=== PATIENT | female | born 1980 | race Caucasian/White ===

== ENCOUNTER 2017-01-29 15:51 | Emergency (ER) | payer OTHER ==
[~2017-01-29 15:51] MED LIST: ABILIFY20 MG PO; ACETAMINOPHEN PO; ACULAR10 ML OP; ADVAIR 100-501 EACH IH; AMBILIFY PO; CERTAGEN PO; CETIRIZINE HCL10 MG PO; CIPRO250 M1 PO; CLINORIL; COLACE PO; DAYQUIL; DITROPAN5 MG DOB; DOXEPIN PO; FAMOTIDINE PO; FLEXERIL PO; FLONASE16 GM; GAS RELIEF125 MG; GEODAN; GEODAN PO; GEODON80 MG PO; HYDROCODON-ACE1 EACH PO; HYDROXYZINE HCL50 MG PO; IBUPROFEN PO; IBUPROFEN800 MG PO; KLONOPIN PO; LAMICTAL PO; LAMICTAL100 MG PO; LEVOXYL0.137 MG; LEVOXYL125 MC1 PO; LEVOXYL150 MC1 PO; LEXAPRO PO; LEXAPRO20 MG PO; MAALOX SUSPENS355 ML PO; MACROBID100 MG DOB; MEDROL4 MG/DOSE- PO; MILK OF MAGNESIA PO; MOBIC PO; MOBIC15 MG PO; MOTRIN600 MG PO; MULTI VITAMIN1 EACH PO; NEURONTIN PO; NEURONTIN600 MG; NICOTINE TRANSD14 MG EXT; OMEPRAZOLE20 M1 PO; OTC ALLERGY MED; PATANOL5 ML OU; PAXIL; PAXIL CR25 MG PO; PAXIL PO; PHENERGAN25 MG PO; PRILOSEC; PROSED DS PO; PROTONIX PO; PROZAC PO; PYRIDIUM100 MG PO; SKELAXIN PO; SUDAFED30 M1 PO; SYNTHROID PO; TETRACYCLINE PO; THERAFLU; TOPROL XL; TRAZODONE; TRAZODONE HCL100 MG PO; TYLENOL #3 PO; ULTRAM PO; URISPAS100 M1 PO; VICODIN 5/500 T1 TAB PO; VOLTAREN75 MG PO; WELLBUTRIN; WELLBUTRIN PO; WELLBUTRIN XL PO; XANAX0.5 M1 PO; ZANTAC150 MG PO; ZITHROMAX PO
[2017-01-29 16:21] LABS: INFLUENZA A NEG (NEG); INFLUENZA B NEG (NEG)
[2017-01-29 16:39] LABS: URINE SOURCE CLEAN CATCH
[2017-01-29 16:41] LABS: URINE APPEARANCE CLEAR; URINE BILIRUBIN NEG (NEG); URINE BLOOD TRACE-INTACT (NEG); URINE COLOR YELLOW; URINE GLUCOSE NEG (NORM); URINE KETONE NEG (NEG); URINE LEUKOCYTE ESTERASE NEG (NEG); URINE NITRATE NEG (NEG); URINE PH 5.5 (5-8); URINE PROTEIN NEG (NEG); URINE SPECIFIC GRAVITY <=1.005 (1.003-1.035); URINE UROBILINOGEN 0.2 MG/DL (NORM)
[2017-01-29 16:44] LABS: MICRO INDICATED? YES
[2017-01-29 16:53] LABS: URINE RBC 0-2 /[HPF] (0-2); URINE WBC 0-2 /[HPF] (0-5)
[2017-01-29 16:54] LABS: CULTURE INDICATED? NO; URINE BACTERIA NEG (NEG)
[2017-07-19] MEDS ORDERED: SYNTHROID PO (19:18)
[2017-07-19] MEDS ORDERED: LATUDA60 MG PO (19:19)
[2017-07-19] MEDS ORDERED: PAXIL40 MG PO (19:19)
[2017-07-19] MEDS ORDERED: PRAZOSIN HCL5 MG PO (19:20)
== END 2017-01-29 17:36 | disposition home or self-care (01) ==
LOC: SED 15:51
PROVIDERS: Emergency Medicine
DX: B34.9 Viral infection, unspecified (principal); F31.9 Bipolar disorder, unspecified; F41.9 Anxiety disorder, unspecified; F43.10 Post-traumatic stress disorder, unspecified; J45.909 Unspecified asthma, uncomplicated; F17.200 Nicotine dependence, unspecified, uncomplicated; Z88.2 Allergy status to sulfonamides; Z79.899 Other long term (current) drug therapy
CPT/HCPCS: 81003; 87804; 99283

== ENCOUNTER → 2017-03-22 | Outpatient (CLI) | payer OTHER ==
[~2017-03-22] MED LIST changes: +LATUDA60 MG PO; +PAXIL40 MG PO; +PRAZOSIN HCL5 MG PO
--- NOTE | ~2017-03-22 | CR63 ---
[facility]. [facility] A Service of [facility] & [facility] RADIOLOGY TEXT RESULTS PATIENT: KATHY GREWAL LOCATION: [facility] : 82 UNIT #: [id number] AGE: [address]: SHERLEY ANDRES APRN SEX: F ORDER DR: [id number] [address] [address] [id number] O MR#: [id number] Acc #: [id number] NAME: KATHY GREWAL : 1980 SEX: F STUDY DATE/TIME: 03/22/2017 20:20 UNIT: [facility] ROOM: STUDY DESCRIPTION: CR Chest 2 View Attending Physician: Sherley Andres Aprn Ordering Physician: Sherley Andres Aprn Primary Care Physician: Real Pal M.D. MEDICAL IMAGING REPORT This report is preliminary unless electronic signature is present. EXAM PA and lateral chest HISTORY Cough and shortness of air and chest pain for 2 months. FINDINGS PA and lateral examination of the chest upright shows a good expansion of the parenchyma with a normal distribution of the pulmonary vascularity. There is no indication of congestion, effusion, infiltrate, tumor, or nodular density. The pleural reflections and diaphragmatic contours are normal. The cardiac silhouette and mediastinal anatomy is within normal limits. IMPRESSION Normal chest. Dictated by... Mukesh Palomino M.D. THIS IS AN ELECTRONICALLY VERIFIED REPORT Mukesh Palomino M.D. at 03/25/2017 10:18 AM GALINA/roseline TD: 03/23/2017 02:35 JOB #: [id number] MEDICAL IMAGING REPORT Page 1 of 1
== END | disposition home or self-care (01) ==
LOC: SRAD 20:16
DX: R05 Cough (principal); R06.09 Other forms of dyspnea
CPT/HCPCS: 71020

== ENCOUNTER 2017-05-10 06:48 | Emergency (ER) | payer OTHER ==
--- NOTE | ~2017-05-10 | CR58 ---
[facility]. [facility] A Service of [facility] & [facility] RADIOLOGY TEXT RESULTS PATIENT: KATHY GREWAL LOCATION: SED : 82 UNIT #: [id number] AGE: [address]: Melba Mckoy MD SEX: F ORDER DR: [id number] [address] [address] [id number] E MR#: [id number] Acc #: [id number] NAME: KATHY GREWAL : 1980 SEX: F STUDY DATE/TIME: 05/10/2017 7:23 UNIT: SED ROOM: STUDY DESCRIPTION: CR Cervical Spine 2 or 3 Views Attending Physician: Melba Mckoy M.D. Ordering Physician: Melba Mckoy M.D. Primary Care Physician: Real Pal M.D. MEDICAL IMAGING REPORT This report is preliminary unless electronic signature is present. EXAM Cervical spine 4 views 05/10/2017 HISTORY Cervical spine pain status post fall down steps yesterday morning. FINDINGS Four views of the cervical spine show satisfactory preservation of the cervical lordosis. The cervical soft tissues are normal. All anterior and posterior elements in the cervical area are anatomically normal without identifiable fracture, dislocation, malignant lytic or sclerotic change, or arthritis. There is no congenital defect apparent. IMPRESSION Normal cervical spine. Dictated by... Elder Scott M.D. THIS IS AN ELECTRONICALLY VERIFIED REPORT Elder Scott M.D. at 05/10/2017 5:05 PM NOLAN/toni TD: 05/10/2017 10:26 JOB #: [id number] MEDICAL IMAGING REPORT Page 1 of 1
--- NOTE | ~2017-05-10 | CR181 ---
[facility]. [facility] A Service of [facility] & [facility] RADIOLOGY TEXT RESULTS PATIENT: KATHY GREWAL LOCATION: SED : 82 UNIT #: [id number] AGE: [address]: Melba Mckoy MD SEX: F ORDER DR: [id number] [address] [address] [id number] E MR#: [id number] Acc #: [id number] NAME: KATHY GREWAL : 1980 SEX: F STUDY DATE/TIME: 05/10/2017 7:23 UNIT: SED ROOM: STUDY DESCRIPTION: CR Lumbar Spine 2 or 3 Views Attending Physician: Melba Mckoy M.D. Ordering Physician: Melba Mckoy M.D. Primary Care Physician: Real Pal M.D. MEDICAL IMAGING REPORT This report is preliminary unless electronic signature is present. EXAM Lumbar spine 3 views 05/10/2017 HISTORY Low back pain status post fall yesterday morning. FINDINGS Three views of the lumbar spine demonstrate no fracture. The posterior vertebral body line is intact and there is no anterolisthesis or retrolisthesis. The disc spaces are normally maintained. Mild scoliosis of the lumbar spine is noted. IMPRESSION Minimal scoliosis of the lumbar spine. No acute abnormality. Dictated by... Elder Scott M.D. THIS IS AN ELECTRONICALLY VERIFIED REPORT Elder Scott M.D. at 05/10/2017 5:05 PM NOLAN/toni TD: 05/10/2017 10:22 JOB #: [id number] MEDICAL IMAGING REPORT Page 1 of 1
--- NOTE | ~2017-05-10 | CR63 ---
[facility]. [facility] A Service of [facility] & [facility] RADIOLOGY TEXT RESULTS PATIENT: KATHY GREWAL LOCATION: SED : 82 UNIT #: [id number] AGE: [address]: Melba Mckoy MD SEX: F ORDER DR: [id number] [address] [address] [id number] E MR#: [id number] Acc #: [id number] NAME: KATHY GREWAL : 1980 SEX: F STUDY DATE/TIME: 05/10/2017 7:23 UNIT: SED ROOM: STUDY DESCRIPTION: CR Chest 2 View Attending Physician: Melba Mckoy M.D. Ordering Physician: Melba Mckoy M.D. Primary Care Physician: Real Pal M.D. MEDICAL IMAGING REPORT This report is preliminary unless electronic signature is present. EXAM Chest PA and lateral 05/10/2017 HISTORY Chest pain and neck pain status post fall down steps yesterday morning, chest discomfort. FINDINGS PA and lateral examination of the chest upright shows a good expansion of the parenchyma with a normal distribution of the pulmonary vascularity. There is no indication of congestion, effusion, infiltrate, tumor, or nodular density. The pleural reflections and diaphragmatic contours are normal. The cardiac silhouette and mediastinal anatomy is within normal limits. IMPRESSION Normal chest. Dictated by... Elder Scott M.D. THIS IS AN ELECTRONICALLY VERIFIED REPORT Elder Scott M.D. at 05/10/2017 5:05 PM NOLAN/toni TD: 05/10/2017 10:23 JOB #: [id number] MEDICAL IMAGING REPORT Page 1 of 1
[~2017-05-10 06:48] MED LIST changes: -LATUDA60 MG PO; -PAXIL40 MG PO; -PRAZOSIN HCL5 MG PO
[2017-07-19] MEDS ORDERED: SYNTHROID PO (19:18)
[2017-07-19] MEDS ORDERED: LATUDA60 MG PO (19:19)
[2017-07-19] MEDS ORDERED: PAXIL40 MG PO (19:19)
[2017-07-19] MEDS ORDERED: PRAZOSIN HCL5 MG PO (19:20)
== END 2017-05-10 08:28 | disposition home or self-care (01) ==
LOC: SED 06:48
DX: S10.93XA Contusion of unspecified part of neck, initial encounter (principal); S20.222A Contusion of left back wall of thorax, initial encounter; S20.221A Contusion of right back wall of thorax, initial encounter; E03.9 Hypothyroidism, unspecified; E31.9 Polyglandular dysfunction, unspecified; F17.210 Nicotine dependence, cigarettes, uncomplicated; F17.200 Nicotine dependence, unspecified, uncomplicated; Z88.2 Allergy status to sulfonamides; W01.0XXA Fall on same level from slipping, tripping and stumbling without subsequent striking against object, initial encounter; Y92.009 Unspecified place in unspecified non-institutional (private) residence as the place of occurrence of the external cause
CPT/HCPCS: 71020; 72040; 72100; 99283